=== PATIENT | female | born 1995 | race Caucasian/White ===

== ENCOUNTER 2017-06-13 21:16 | Emergency (ER) | payer OTHER ==
[~2017-06-13] VITALS: Ht 157.5 cm; Wt 52.3 kg
[2017-06-13 21:20] VITALS: TEMP 36.8; Ht 157.5 cm; Wt 52.3 kg
[2017-06-13] MEDS ORDERED: ONDANSETRON HOME PACK 4MG OD TAB PO ONE (22:00)
--- NOTE | 2017-06-13 22:00 | EMERGENCY ROOM VISIT NOTE ---
History First contact with patient: 21:42 Chief Complaint: HEADACHE Stated Complaint: HEADACHE, NAUSEA History of Present Illness The patient is a 21 year old female who presents to the Emergency Room with complaints of a head injury. The patient states that 5 days ago, she was dancing on a table and she jumped up, striking her head on concrete. She denies any loss of consciousness at that time. She states she has been nauseous and has had a headache in the front of her head. She has had some difficulty concentrating. She reports a history of 2 previous concussions. The patient denies any vomiting, numbness/weakness, blurred vision or slurred speech. She rates her overall discomfort 7/10. Review of Systems A complete 10 point review of systems was reviewed with the patient with pertinent positives and negatives as per history of present illness. All else were negative. Social History Smoking Status: Never Smoker Current/Historical Medications Scheduled Control Pills ( Control Pills), 1 TAB PO DAILY Ondasetron Odt (Zofran Odt), 4 MG SL Q6H Physical Exam Vital Signs Date Time Temp Pulse Resp B/P (MAP) Pulse Ox O2 Delivery O2 Flow Rate FiO2 06/13/17 22:17 78 20 102/60 99 Room Air 06/13/17 21:20 36.8 91 16 128/84 97 Room Air Physical Exam VITALS: Vitals are noted on the nurse's note and reviewed by myself. Vital signs stable. GENERAL: This is a 21-year-old female, in no acute distress, nondiaphoretic, well-developed well-nourished. SKIN: The skin was without rashes, erythema, edema, or bruising. HEAD: Normocephalic atraumatic. EARS: External auditory canals clear, tympanic membranes pearly dempsey without erythema or effusion bilaterally. No hemotympanum. EYES: Pupils equal round and reactive to light and accommodation. Conjunctivae without injection, sclerae without icterus. Extraocular movements intact. MOUTH: Mucous membranes moist. Tonsils are not enlarged. Pharynx without erythema or exudate. NECK: Supple without nuchal rigidity. Cervical spine is nontender. HEART: Regular rate and rhythm without murmurs gallops or rubs. LUNGS: Clear to auscultation bilaterally without wheezes, rales or rhonchi. MUSCULOSKELETAL: Full range of motion throughout. Strength 5/5 throughout. NEURO: Patient was alert and oriented to person place and time. Normal sensation to light and sharp touch. Deep tendon reflexes 2+ throughout. No focal neurological deficits. Medical Decision & Procedures Medications Administered Medications (Trade) Dose Ordered Sig/Akua Route Start Time Stop Time Status Last Admin Dose Admin Ondansetron HCl (ZOFRAN ODT 4MG Home Pack) 1 homepack UD ONCE PO 06/13/17 22:00 06/13/17 22:01 DC 06/13/17 22:16 1 HOMEPACK Medical Decision Differential diagnosis includes concussion, intracranial bleed, skull fracture, among others. The patient was evaluated as above. She is very well-appearing and does not have any concerning symptoms or physical exam findings. Options of care were discussed with the patient claims CT of the head versus observation and the patient prefers not to have a CT at this time. Customary head injury precautions were reviewed with the patient. She was advised to follow-up with [facility] as needed. The patient was agreeable to this. She verbalized understanding of my assessment and treatment plan and was discharged home in good condition. Medication Reconcilliation Current Medication List: was personally reviewed by me Blood Pressure Screening Patient's blood pressure: Normal blood pressure Impression Primary Impression: Closed head injury Departure Information Dispostion Home / Self-Care Condition GOOD Prescriptions Ondasetron Odt (ZOFRAN ODT) 4 Mg Tab 4 MG SL Q6H for Nausea, #15 TAB Prov: Kary Luevano .YESSI 06/13/17 Referrals No Doctor, Assigned (PCP) Patient Instructions ED Head Injury Closed, My [facility] Additional Instructions You have been treated in the Emergency Department for a Closed Head Injury. You have been prescribed Zofran to be used for any nausea or vomiting. Take as prescribed. For pain control, you can use the following uibn-lbc-lnsyflv medicines (if >12 yo): - Regular strength (325mg/tab) Tylenol (acetaminophen) 2 tabs every 4-6 hours as needed. Do not exceed 12 tablets in a 24 hour period. Avoid taking more than 4 grams (4000 mg) of Tylenol per day. This includes any other sources of acetaminophen you may take on a regular basis. - Regular strength (200 mg/tab) Advil (ibuprofen) 1-2 tabs every 4-6 hours as needed. Do not exceed a dose of 3200 mg per day. You should relax in a quiet, dark place for the rest of the day. Avoid any possible triggers including: cigarette smoke, caffeine, nicotine, chocolate, wine, beer, loud noises or music, or bright lights. You should schedule a follow-up appointment in 2-3 days with your Primary Care Provider for further evaluation and treatment of your Headache. You may follow-up with the concussion clinic. They are located at [address] [place] [address], [address]. You may call them to schedule an appointment at . There are open Monday to Monday from 8:30 AM to 5:00 PM. Return to the Emergency Department if your current symptoms worsen despite treatment course outlined above, or if you develop any of the following symptoms : intractable pain despite aforementioned treatment course, visual disturbances , loss of vision, unilateral weakness or facial drooping, slurring of speech, loss of coordination, or loss of consciousness. Problem Qualifiers Primary Impression: Closed head injury Encounter type: initial encounter Qualified Codes: S09.90XA - Unspecified injury of head, initial encounter
[2017-06-13] MEDS ORDERED: BCPILLS PO (22:01)
[2017-06-13] MEDS ORDERED: ONDA4TAB10 SL (22:12)
[2017-06-13 22:17] VITALS: BP 102/60; PULSE 78; O2SAT 99
== END 2017-06-13 22:23 | disposition home or self-care (01) ==
LOC: C.EDB 21:18 → C.EDD 22:23
DX: S09.90XA Unspecified injury of head, initial encounter (principal); W22.8XXA Striking against or struck by other objects, initial encounter